=== PATIENT | male | born 1970 | race Caucasian/White ===

== ENCOUNTER 2016-08-06 07:40 | Emergency (ER) | payer OTHER ==
[2016-08-06 07:51] VITALS: BP 139/96; PULSE 89; TEMP 97.7; BMI 29.2
--- NOTE | 2016-08-06 08:14 | PDOC ---
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 She states she has not seen him for 1 month/ her reg visits and noted his face with some irregularity. No knowledfe of trauma , no fevers, has had Sinus Infections in past. 08/06/16 09:57 Timing/Duration: reports: other (uncertain as has not been visited since last month ) Severity: reports: mild Past History - Travel Traveled outside of the country in the last 30 days: No Close contact w/someone who was outside of country & ill: No - Past Medical History Allergies/Adverse Reactions: Allergies Allergy/AdvReac Type Severity Reaction Status Date / Time egg Allergy Verified 08/06/16 07:49 milk Allergy Verified 08/06/16 07:49 orange juice [[place] Juice] Allergy Verified 08/06/16 07:49 Home Medications: Ambulatory Orders Calcium Carbonate/Vitamin D3 [Oyster Shell 500-Vit D3 200 Tb] 1 each PO TID FA/Mv,Ca,Iron,Min/Lycopene/Lut [Centrum Tablet] 1 each PO DAILY 04/15/14 Lamotrigine [Lamictal] 50 mg PO BID 04/15/14 Loratadine [Claritin -] 10 mg PO DAILY 04/15/14 Magnesium Hydrox 2400MG/30Ml [Milk Of Magnesia] 15 ml PO DAILY 04/15/14 Olopatadine HCl [Pataday] 1 drop OU DAILY 04/15/14 Phenobarbital 16.2 mg PO HS 04/15/14 Phenobarbital 64.8 mg PO BID 04/15/14 Amoxicillin Suspension - 500 mg PO TID #150 ml 08/06/16 Anemia: No Asthma: No Cancer: No CVA: No COPD: No CHF: No Dementia: No Diabetes: No HTN: No Hypercholesterolemia: No Liver Disease: No Seizures: Yes (epilepsy) Thyroid Disease: No Other medical history: non-verbal - Surgical History Appendectomy: No Cholecystectomy: No Lung Surgery: No Neurologic Surgery: No Orthopedic Surgery: No - Immunization History Immunization Up to Date: Yes - Psycho/Social/Smoking Cessation Hx Anxiety: No Suicidal Ideation: No Smoking History: Never smoked Information on smoking cessation initiated: No Hx Alcohol Use: No Drug/Substance Use Hx: No Substance Use Type: None Hx Substance Use Treatment: No Review of Systems - Review of Systems Able to Perform ROS?: Yes Is the patient limited Tongan proficient: Yes Constitutional: Yes: See HPI. No: Symptoms Reported, Chills, Fever HEENTM: Yes: Symptoms Reported, See HPI, Other (rubbing left side of face/ear) Respiratory: No: Symptoms reported Cardiac (ROS): No: Symptoms Reported Integumentary: Yes: See HPI, Other (noted swelling by sister, ). No: Symptoms Reported, Bruising All Other Systems: Reviewed and Negative *Physical Exam - Vital Signs Last Vital Signs Temp Pulse Resp BP Pulse Ox 97.7 F 89 20 139/96 97 08/06/16 07:45 08/06/16 07:45 08/06/16 07:45 08/06/16 07:45 08/06/16 07:45 - Physical Exam General Appearance: Yes: Nourished, Appropriately Dressed, Other (patient severely and fully and physically disabled, uncommunicative although responds to commands. Does not appear to be in distress, no moaning,). No: Apparent Distress HEENT: positive: EFE, Other (patient is severe tooth grinding, has multiple dental deformities but no obvious abscess or caries detected, difficult to examine secondary to mental disability. ). negative: TMs Normal (unable to visualize ) Neck: positive: Supple. negative: Tender, Lymphadenopathy (R), Lymphadenopathy (L) Respiratory/Chest: positive: Lungs Clear, Normal Breath Sounds Gastrointestinal/Abdominal: positive: Soft Integumentary: positive: Pale. negative: Erythema, Swelling (no bogginess, loculations, firmness or reproduced tenderness with palpation to TMJ, cheek, orbit or chin. ), Ecchymosis, Bruising Neurologic: positive: Normal Mood/Affect (calm, cooperative with exam), Normal Response Progress Note - Progress Note Progress Note: facial swelling, possible dental injury- will treat with Amoxicillin , recommend Dental and ENT- discussed with nursing at [facility]. and will send AMoxicillin *DC/Admit/Observation/Transfer Diagnosis at time of Disposition: Left facial swelling - Discharge Dispostion Disposition: HOME Condition at time of disposition: Stable Admit: No - Prescriptions Prescriptions: Amoxicillin Suspension - 500 mg PO TID #150 ml - Referrals Referrals: Lori Esquivel [Primary Care Provider] - Liban Paz MD [Staff Physician] - - Patient Instructions Printed Discharge Instructions: DI for Cellulitis -- Adult Additional Instructions: Rest, drink lots of fluids: Teas, water, soups Saltwater gargles/ keep mouth clean and rinse after each meal May use wet teabag for pain relief to area Avoid hard chewing foods, stick to ice cream, Jell-O, yogurt etc. Tylenol or Motrin for fever and pain Complete all medication as prescribed Seek dental appointment as soon as possible for evaluation of dental injury/pain May use Hydrogen Peroxide daily to loosen wax, and irrigate Would recommend ENT evaluation for cerumen analysis Followup with private physician in one to 2 days as needed Return to emergency department for worsened symptoms, fevers, swelling to face or worsened pain
== END 2016-08-06 09:02 | disposition home or self-care (01) ==
LOC: JER 07:40 → JERFT 07:40
DX: K08.89 Other specified disorders of teeth and supporting structures (principal); M27.9 Disease of jaws, unspecified
CPT/HCPCS: 99281-25

== ENCOUNTER 2019-02-27 12:49 | Emergency (ER) | payer OTHER ==
[2019-02-27 13:02] VITALS: BP 104/78; PULSE 69; TEMP 97.3; BMI 27.3
--- NOTE | 2019-02-27 13:13 | PDOC ---
History of Present Illness - General Chief Complaint: Rash Stated Complaint: SWOLLEN FACE Time Seen by Provider: 02/27/19 13:04 - History of Present Illness Initial Comments: 02/27/19 13:13 CHIEF COMPLAINT: HISTORY OF PRESENT ILLNESS: No recent travel or sick contacts. PAST MEDICAL HISTORY: Denies past medical history FAMILY HISTORY: Denies SOCIAL HISTORY: Lives at home with ____. Occupation: . Denies tobacco, alcohol, illicit drug use. SURGICAL HISTORY: Denies ALLERGIES: No known drug allergies REVIEW OF SYSTEMS General/Constitutional: Denies fever or chills. Denies weakness, weight change. HEENT: Denies change in vision. Denies ear pain or discharge. Denies sore throat. Cardiovascular: Denies chest pain or shortness of breath. Respiratory: Denies cough, wheezing, or hemoptysis. Gastrointestinal: Denies nausea, vomiting, diarrhea or constipation. Denies rectal bleeding. Genitourinary: Denies dysuria, frequency, or change in urination. Musculoskeletal: Denies joint or muscle swelling or pain. Denies neck or back pain. Skin and breasts: Denies rash or easy bruising. Neurologic: Denies headache, vertigo, loss of consciousness, or loss of sensation. Psychiatric: Denies depression or anxiety. Endocrine: Denies increased thirst. Denies abnormal weight change. Hematologic/Lymphatic: Denies anemia, easy bleeding, or history of blood clots. Allergic/Immunologic: Denies hives or skin allergy. Denies latex allergy. PHYSICAL EXAM General Appearance: Well-appearing, appropriately dressed. No apparent distress , no intoxication. HEENT: EOMI, PERRLA, normal ENT inspection, normal voice, TMs normal, pharynx normal. No conjunctival pallor. No photophobia, scleral icterus. Neck: Supple. Trachea midline. No tenderness, rigidity, carotid bruit, stridor , lymphadenopathy, or thyromegaly. Respiratory/Chest: Lungs CTAB. No shortness of breath, chest tenderness, respiratory distress, accessory muscle use. No crackles, rales, rhonchi, stridor , wheezing, dullness Cardiovascular: RRR. S1, S2. No JVD, murmur, bradycardia, tachycardia. Vascular Pulses: Dorsalis-Pedis (R): 2+, Dorsalis-Pedis (L): 2+ Gastrointestinal/Abdominal: Normal bowel sounds. Abdomen soft, non-distended. No tenderness or rebound tenderness. No organomegaly, pulsatile mass, guarding , hernia, hepatomegaly, splenomegaly. Lymphatic: No adenopathy, tenderness. Musculoskeletal/Extremities: Normal inspection. FROM of all extremities, normal capillary refill. Pelvis Stable. No CVA tenderness. No tenderness to extremities, pedal edema, swelling, erythema or deformity. Integumentary: Appropriate color, dry, warm. No cyanosis, erythema, jaundice or rash Neurologic: head greenskeeper II-XII intact. Fully oriented, alert. Appropriate mood/affect. Motor strength 5/5. No appreciable EOM palsy, facial droop or sensory deficit. Past History - Past Medical History Allergies/Adverse Reactions: Allergies Allergy/AdvReac Type Severity Reaction Status Date / Time egg Allergy Verified 08/06/16 07:49 milk Allergy Verified 08/06/16 07:49 orange juice [[place] Juice] Allergy Verified 08/06/16 07:49 Home Medications: Ambulatory Orders Calcium Carbonate/Vitamin D3 [Oyster Shell 500-Vit D3 200 Tb] 1 each PO TID FA/Mv,Ca,Iron,Min/Lycopene/Lut [Centrum Tablet] 1 each PO DAILY 04/15/14 Lamotrigine [Lamictal] 50 mg PO BID 04/15/14 Loratadine [Claritin -] 10 mg PO DAILY 04/15/14 Magnesium Hydrox 2400MG/30Ml [Milk Of Magnesia] 15 ml PO DAILY 04/15/14 Olopatadine HCl [Pataday] 1 drop OU DAILY 04/15/14 Phenobarbital 16.2 mg PO HS 04/15/14 Phenobarbital 64.8 mg PO BID 04/15/14 Amoxicillin Suspension - 500 mg PO TID #150 ml 08/06/16 Hydrocortisone 0.5% Cream [Hytone 0.5% Cream -] 1 applic TP DAILY #1 tube Anemia: No Asthma: No Cancer: No CVA: No COPD: No CHF: No Dementia: No Diabetes: No HTN: No Hypercholesterolemia: No Liver Disease: No Seizures: Yes (epilepsy) Thyroid Disease: No - Surgical History Appendectomy: No Cholecystectomy: No Lung Surgery: No Neurologic Surgery: No Orthopedic Surgery: No - Immunization History Immunization Up to Date: Yes - Psycho Social/Smoking Cessation Hx Smoking History: Never smoked Hx Alcohol Use: No Drug/Substance Use Hx: No Substance Use Type: None Hx Substance Use Treatment: No *Physical Exam - Vital Signs Last Vital Signs Temp Pulse Resp BP Pulse Ox 97.3 F L 69 20 104/78 97 02/27/19 12:52 02/27/19 12:52 02/27/19 12:52 02/27/19 12:52 02/27/19 12:52 Discharge - Discharge Information Problems reviewed: Yes Clinical Impression/Diagnosis: Skin abnormality Condition: Stable Disposition: HOME - Admission No - Additional Discharge Information Prescriptions: Hydrocortisone 0.5% Cream [Hytone 0.5% Cream -] 1 applic TP DAILY #1 tube - Follow up/Referral - Patient Discharge Instructions Additional Instructions: Please use medication as prescribed. Follow up with the primary care doctor in one week for continued monitoring. - Post Discharge Activity
--- NOTE | 2019-02-27 13:56 | PDOC ---
History of Present Illness - General Chief Complaint: Rash Stated Complaint: SWOLLEN FACE Time Seen by Provider: 02/27/19 13:04 - History of Present Illness Initial Comments: 02/27/19 13:47 CHIEF COMPLAINT: redness to cheek HISTORY OF PRESENT ILLNESS: 49 yo M with hx of developmental delay, nonverbal at baseline, brought in by sister from [facility] for evaluation of redness to left cheek. Sister reports that she noticed redness to the left cheek last Thursday and was concerned becaused she still saw a little redness today. No recent travel or sick contacts. PAST MEDICAL HISTORY: Denies past medical history FAMILY HISTORY: Denies SOCIAL HISTORY: Denies tobacco, alcohol, illicit drug use. SURGICAL HISTORY: Denies ALLERGIES: eggs, milk, orange juice REVIEW OF SYSTEMS (per sister and SNF staff) General/Constitutional: Denies fever. Cardiovascular: Denies chest pain or shortness of breath. Respiratory: Denies cough, wheezing, or hemoptysis. Gastrointestinal: Denies nausea, vomiting, diarrhea. Genitourinary: Denies change in urination. Musculoskeletal: Denies joint or muscle swelling or pain. Denies neck or back pain. Skin: Mild redness to left cheek. Neurologic: Acting at baseline per sister and [facility] staff. PHYSICAL EXAM General Appearance: Well-appearing, appropriately dressed. No apparent distress , no intoxication. HEENT: EOMI, PERRLA. No conjunctival pallor. No photophobia, scleral icterus. Respiratory/Chest: Lungs CTAB. Cardiovascular: RRR. S1, S2. Integumentary: Appropriate color, dry, warm. No cyanosis, erythema, jaundice or rash Past History - Past Medical History Allergies/Adverse Reactions: Allergies Allergy/AdvReac Type Severity Reaction Status Date / Time egg Allergy Verified 08/06/16 07:49 milk Allergy Verified 08/06/16 07:49 orange juice [[place] Juice] Allergy Verified 08/06/16 07:49 Home Medications: Ambulatory Orders Calcium Carbonate/Vitamin D3 [Oyster Shell 500-Vit D3 200 Tb] 1 each PO TID FA/Mv,Ca,Iron,Min/Lycopene/Lut [Centrum Tablet] 1 each PO DAILY 04/15/14 Lamotrigine [Lamictal] 50 mg PO BID 04/15/14 Loratadine [Claritin -] 10 mg PO DAILY 04/15/14 Magnesium Hydrox 2400MG/30Ml [Milk Of Magnesia] 15 ml PO DAILY 04/15/14 Olopatadine HCl [Pataday] 1 drop OU DAILY 04/15/14 Phenobarbital 16.2 mg PO HS 04/15/14 Phenobarbital 64.8 mg PO BID 04/15/14 Amoxicillin Suspension - 500 mg PO TID #150 ml 08/06/16 Hydrocortisone 0.5% Cream [Hytone 0.5% Cream -] 1 applic TP DAILY #1 tube Anemia: No Asthma: No Cancer: No CVA: No COPD: No CHF: No Dementia: No Diabetes: No HTN: No Hypercholesterolemia: No Liver Disease: No Seizures: Yes (epilepsy) Thyroid Disease: No - Surgical History Appendectomy: No Cholecystectomy: No Lung Surgery: No Neurologic Surgery: No Orthopedic Surgery: No - Immunization History Immunization Up to Date: Yes - Psycho Social/Smoking Cessation Hx Smoking History: Never smoked Hx Alcohol Use: No Drug/Substance Use Hx: No Substance Use Type: None Hx Substance Use Treatment: No *Physical Exam - Vital Signs Last Vital Signs Temp Pulse Resp BP Pulse Ox 97.3 F L 69 20 104/78 97 02/27/19 12:52 02/27/19 12:52 02/27/19 12:52 02/27/19 12:52 02/27/19 12:52 Medical Decision Making - Medical Decision Making 02/27/19 13:56 49 yo M with hx of developmental delay, nonverbal at baseline, brought in by sister from [facility] for evaluation of redness to left cheek. No tenderness, abscess, or appreciable erythema on exam. Reassurance provided to sister. Discharge - Discharge Information Problems reviewed: Yes Clinical Impression/Diagnosis: Skin abnormality Condition: Stable Disposition: HOME - Additional Discharge Information Prescriptions: Hydrocortisone 0.5% Cream [Hytone 0.5% Cream -] 1 applic TP DAILY #1 tube - Follow up/Referral - Patient Discharge Instructions Additional Instructions: Please use medication as prescribed. Follow up with the primary care doctor in one week for continued monitoring. - Post Discharge Activity
== END 2019-02-27 13:49 | disposition home or self-care (01) ==
LOC: JERFT 12:49
DX: L81.9 Disorder of pigmentation, unspecified (principal); G40.909 Epilepsy, unspecified, not intractable, without status epilepticus; Z91.012 Allergy to eggs; Z91.011 Allergy to milk products; Z91.018 Allergy to other foods; R62.50 Unspecified lack of expected normal physiological development in childhood
CPT/HCPCS: 99281-25